=== PATIENT | male | born 1995 | race Caucasian/White ===

== ENCOUNTER 2019-05-19 10:15 | Outpatient (CLI) | payer BC, SELFPAY ==
--- NOTE | 2019-05-19 11:00 | NEURO_ITS ---
Patient Number: [id number] Impression: # Complains of numbness of hands. # No Carpal Tunnel Syndrome. # No ulnar neuropathy. # Normal needle/EMG exam. Nerve Conduction Studies Anti Sensory Summary Table Stim Site NR Peak (ms) P-T Amp (?V) Site1 Site2 Delta-P (ms) Dist (cm) [place] (m/s) Left Median Anti Sensory (2-3nd Digit) Wrist 2.6 89.7 Wrist 2-3nd Digit 2.6 14.0 54 Wrist 2.5 91.6 Wrist 2-3nd Digit 2.6 14.0 54 Right Median Anti Sensory (2-3nd Digit) Wrist 2.5 69.7 Wrist 2-3nd Digit 2.5 14.0 56 Wrist 2.7 60.1 Wrist 2-3nd Digit 2.5 14.0 56 Left Radial Anti Sensory (Base 1st Digit) Wrist 2.0 19.7 Wrist Base 1st Digit 2.0 0.0 Right Radial Anti Sensory (Base 1st Digit) Wrist 2.3 14.2 Wrist Base 1st Digit 2.3 0.0 Left Ulnar Anti Sensory (5th Digit) Wrist 2.4 63.4 Wrist 5th Digit 2.4 14.0 58 Right Ulnar Anti Sensory (5th Digit) Wrist 2.2 62.4 Wrist 5th Digit 2.2 14.0 64 Motor Summary Table Stim Site NR Onset (ms) O-P Amp (mV) Site1 Site2 Delta-0 (ms) Dist (cm) [place] (m/s) Left Median Motor (Abd Poll Brev) Wrist 2.7 6.9 Elbow Wrist 5.3 32.0 60 Elbow 8.0 3.8 Right Median Motor (Abd Poll Brev) Wrist 3.0 5.9 Elbow Wrist 4.6 30.0 65 Elbow 7.6 5.5 Left Ulnar Motor (Abd Dig Minimi) Wrist 2.4 5.4 A Elbow Wrist 5.2 31.0 60 A Elbow 7.6 4.3 Right Ulnar Motor (Abd Dig Minimi) Wrist 2.1 5.1 A Elbow Wrist 4.7 31.0 66 A Elbow 6.8 4.4 F Wave Studies NR F-Lat (ms) L-R F-Lat (ms) Left Median (Mrkrs) (Abd Poll Brev) 26.95 0.63 Right Median (Mrkrs) (Abd Poll Brev) 26.33 0.63 Left Ulnar (Mrkrs) (Abd Dig Min) 26.36 1.04 Right Ulnar (Mrkrs) (Abd Dig Min) 25.32 1.04 EMG Side Muscle Nerve Root Ins Act Fibs Amp Dur Recrt Comment Right 1stDorInt Ulnar C8-T1 Nml Nml Nml Nml Nml Right Ext Indicis Radial (Post Int) C7-8 Nml Nml Nml Nml Nml Right Ext Digitorum Radial (Post Int) C7-8 Nml Nml Nml Nml Nml Right BrachioRad Radial C5-6 Nml Nml Nml Nml Nml Right PronatorTeres Median C6-7 Nml Nml Nml Nml Nml Right Abd Poll Brev Median C8-T1 Nml Nml Nml Nml Nml Left 1stDorInt Ulnar C8-T1 Nml Nml Nml Nml Nml Left Ext Indicis Radial (Post Int) C7-8 Nml Nml Nml Nml Nml Left Ext Digitorum Radial (Post Int) C7-8 Nml Nml Nml Nml Nml Left BrachioRad Radial C5-6 Nml Nml Nml Nml Nml Left PronatorTeres Median C6-7 Nml Nml Nml Nml Nml Left Abd Poll Brev Median C8-T1 Nml Nml Nml Nml Nml MTDD
== END 2019-05-19 10:16 | disposition home or self-care (01) ==
LOC: ANHNEURO 10:19
PROVIDERS: Visit Provider Psychiatry & Neurology Neurology
DX: R20.2 Paresthesia of skin (principal)
CPT/HCPCS: 95886; 95911

== ENCOUNTER 2019-06-26 11:00 | Outpatient (CLI) | payer BC, SELFPAY ==
[2019-06-26 11:30] LABS: Basophils Percent Auto 0.3 % (0.2-1.2); Eosinophils Absolute Auto 0.1 K/mm3 (0-0.3); Eosinophils Percent Auto 0.9 % (0-4.4); Hematocrit 46.8 % (42.0-52.0); Hemoglobin 15.4 g/dL (14.0-18.0); Immature Granulocyte Absolute 0.03 K/mm3 (0.00-0.031); Immature Granulocyte Percent A 0.3 % (0-0.5); Lymphocytes Absolute Auto 2.88 K/mm3 (0.9-3.2); Lymphocytes Percent Auto 32.8 % (18.3-44.2); Mean Corpuscular HGB Conc 32.9 g/dl (32-36); Mean Corpuscular Hemoglobin 29.4 pg (26-34); Mean Corpuscular Volume 89.3 fl (80-100); Mean Platelet Volume 9.8 fl (7.4-10.4); Monocytes Absolute Auto 0.7 K/mm3 (0.1-0.6); Monocytes Percent Auto 7.5 % (2.6-8.5); Neutrophils Absolute Auto 5.1 K/mm3 (1.3-6.7); Neutrophils Percent Auto 58.2 % (45.5-73.1); Platelet Count Result 274 k/mm3 (150-375); Red Blood Count 5.24 M/mm3 (4.6-6.20); Red Cell Distribution Width 12.6 % (11.5-14.5); White Blood Count 8.8 K/mm3 (4.5-10.0)
[2019-06-26 11:40] LABS: Alanine Aminotransferase 22 U/L (4-50); Albumin Level 4.6 g/dL (3.5-5.1); Alkaline Phosphatase 95 U/L (38-126); Aspartate Amino Transferase 22 U/L (17-59); Bilirubin,Total 0.7 mg/dL (0.2-1.3); Blood Urea Nitrogen 13 mg/dL (9-20); Calcium 9.1 mg/dL (8.4-10.2); Carbon Dioxide 26 mmol/L (22-30); Chloride 103 mmol/L (98-107); Estimated Glomerular Filt Rate > 60; Glucose 89 mg/dL (75-110); Potassium 4.2 mmol/L (3.4-5.0); Sodium 139 mmol/L (137-145)
[2019-06-26 12:46] LABS: Folic Acid 11.7 ng/mL (2.76->20)
[2019-07-01 10:54] LABS: JC Polyoma Virus DNA, QL Plasma; JC Polyoma Virus Source Not Detected (Not Detected)
== END 2019-06-26 11:01 | disposition home or self-care (01) ==
PROVIDERS: PCP Family Medicine; Visit Provider Psychiatry & Neurology Neurology
DX: G35 Multiple sclerosis (principal)
CPT/HCPCS: 36415; 80053; 82607; 82746; 85025; 87798

== ENCOUNTER 2019-10-10 09:57 | Outpatient (CLI) | payer BC, SELFPAY ==
--- NOTE | ~2019-10-10 | MR_ITS ---
EXAMINATION: MR brain/brain stem wo/w con EXAM DATE: 10/10/2019 11:07 INDICATION: Multiple sclerosis. New symptoms of hand numbness and tingling, has moved to legs. TECHNIQUE: Magnetic resonance imaging (MRI) of the brain/brain stem obtained without contrast. Sagit anthony T1, axial diffusion, gradient echo (T2*), T1, T2, FLAIR sequences obtained. Demyelinating protoco l was utilized including sagittal FLAIR images. Patient was then injected with 18 cc intravenous M ultihance contrast. Axial and coronal postcontrast T1 weighted sequences obtained. There is no prior study for comparison. FINDINGS: There are several punctate foci of periventricular signal abnormalities, a non-specific fin ding with differential diagnosis including premature chronic small vessel ischemic disease (especiall y if the patient has cardiovascular risk factors), migraine headaches, demyelinating disease such as multiple sclerosis or acute disseminated encephalomyelitis (ADEM), vasculopathy, lyme's disease or re active astrocytosis (gliosis) secondary to nonspecific etiology. There are no areas of restricted diffusion to suggest acute infarction. There is no acute hemorrhage seen on the T2*, a hemosiderin sensitive sequence. No intraparenchymal brain mass. The ventricles a re normal in size. There are no extra-axial collections. Flow voids are seen in the cerebral arteri es on the T2-weighted sequences consistent with their expected patency. The orbits are unremarkable. Soft tissue is unremarkable. There are no areas of abnormal enhancement on the postcontrast image s. IMPRESSION: Several punctate nonspecific periventricular signal abnormalities. No enhancing, active d isease. Reviewed, dictated and finalized at location A. IMPRESSION: Several punctate nonspecific periventricular signal abnormalities. No enhancing, active disease.
[2019-10-10 10:30] LABS: Estimated Glomerular Filt Rate > 60
== END 2019-10-10 09:58 | disposition home or self-care (01) ==
PROVIDERS: PCP Family Medicine; Visit Provider Psychiatry & Neurology Neurology
DX: G35 Multiple sclerosis (principal)
CPT/HCPCS: 36415; 70553; A9577

== ENCOUNTER 2019-10-23 08:30 | Outpatient (RCR) | payer BC, SELFPAY ==
[2019-10-19 08:49] VITALS: BMI 27.6
[2019-10-19 09:03] VITALS: BP 124/68; PULSE 89; RESP 16; TEMP 36.3; O2SAT 98
[2019-10-19 10:25] VITALS: BP 127/65
[2019-10-20 11:04] VITALS: BP 141/78; PULSE 96; RESP 16; TEMP 36.3; O2SAT 98
[2019-10-20 12:22] VITALS: BP 120/72
[2019-10-21 09:03] VITALS: BP 123/61; PULSE 105; RESP 16; TEMP 36.6; O2SAT 97
[2019-10-21 10:22] VITALS: BP 128/57; PULSE 91; RESP 16; O2SAT 99
[2019-10-22 09:38] VITALS: BP 133/63; PULSE 95; RESP 16; O2SAT 97
[2019-10-22 10:53] VITALS: BP 125/63; PULSE 80; RESP 18; O2SAT 99
[2019-10-23 08:42] VITALS: BP 120/68; PULSE 885; RESP 16; O2SAT 98
[2019-10-23 10:00] VITALS: BP 132/69; PULSE 69; RESP 16; O2SAT 99
== END 2019-10-28 14:08 | disposition other institution (70) ==
LOC: AMCINF 08:30
PROVIDERS: PCP Family Medicine; Referring Provider Psychiatry & Neurology Neurology; Visit Provider Internal Medicine Hematology & Oncology
DX: G35 Multiple sclerosis (principal)
CPT/HCPCS: 96365; J2930

== ENCOUNTER 2020-12-28 15:35 | Outpatient (CLI) | payer OTHER, SELFPAY ==
--- NOTE | ~2020-12-28 | MR_ITS ---
EXAMINATION: MR thoracic spine wo/w con EXAM DATE: 12/28/2020 17:36 INDICATION: G35 - Multiple sclerosis . TECHNIQUE: Multi-sequential, multiplanar MR images of the thoracic spine were obtained without contra st. Sagittal T1, T2, T2 fat saturation, axial T2 weighted images reviewed. Axial T1 weighted sequenc e. Patient was then injected with 17 mL Multihance intravenous contrast and reimaged. Postcontrast axial and sagittal T1-weighted fat saturation sequences were obtained. Correlation was made with cerv ical spine MR same date. FINDINGS: There are scattered thoracic spinal cord signal abnormalities, T2 hyperintensities which ar e ill-defined and consistent with multiple sclerosis. One of these at T1-2 endplate level measuring 3 mm demonstrating enhancement, consistent with active multiple sclerosis plaque. No other areas of ab normal enhancement are demonstrated. There is mild mid and lower thoracic spondylosis. IMPRESSION: 1. Small enhancing upper thoracic spinal cord plaque, active lesion of multiple sclerosis. 2. Several other ill-defined thoracic cord signal abnormalities consistent with multiple sclerosis. 3. Mild thoracic spondylosis. Reviewed, dictated and finalized at location B. IMPRESSION: 1. Small enhancing upper thoracic spinal cord plaque, active lesion of multipl e sclerosis. 2. Several other ill-defined thoracic cord signal abnormalities consistent wit h multiple sclerosis. 3. Mild thoracic spondylosis.
--- NOTE | ~2020-12-28 | MR_ITS ---
EXAMINATION: MR cervical spine wo/w con EXAM DATE: 12/28/2020 17:36 INDICATION: G35 - Multiple sclerosis. TECHNIQUE: Multi-sequential, multiplanar MR images of the cervical spine were obtained without contra st. Axial T2, axial T2 MERGE sequence. Sagittal T1, T2, T2 fat saturation images also obtained. Axi al T1 weighted sequence. Patient was then injected with 17 mL Multihance intravenous contrast and re imaged. Postcontrast axial and sagittal T1-weighted fat saturation sequences were obtained. There i s no prior study for comparison. FINDINGS: Scattered cervical spinal cord signal abnormalities which are ill-defined and consistent w ith provided history of multiple sclerosis. There is 3 mm focus of enhancement within the cord at the T1-2 level, consistent with an active plaque. No other areas of abnormal enhancement. The vertebral bodies are aligned in the AP dimension. Vertebral body and disc heights are well-maintained. There ar e no suspicious marrow signal abnormalities. Paraspinal soft tissue is unremarkable. Mild cervical fa cet arthropathy. IMPRESSION: 1. Small enhancing upper thoracic spinal cord plaque, active lesion of multiple sclerosis 2. Scattered cervical cord signal abnormalities, sequela from multiple sclerosis. Reviewed, dictated and finalized at location B. IMPRESSION: 1. Small enhancing upper thoracic spinal cord plaque, active lesion of multipl e sclerosis 2. Scattered cervical cord signal abnormalities, sequela from multiple scleros is.
[2020-12-28 16:18] LABS: Estimated Glomerular Filt Rate > 60
== END 2020-12-28 15:36 | disposition home or self-care (01) ==
PROVIDERS: PCP Family Medicine; Visit Provider Psychiatry & Neurology Neurology
DX: G35 Multiple sclerosis (principal); M47.814 Spondylosis without myelopathy or radiculopathy, thoracic region
CPT/HCPCS: 72156; 72157; A9577

== ENCOUNTER 2021-01-05 10:53 | Inpatient (IN) | payer OTHER, SELFPAY ==
[2021-01-05 11:37] VITALS: BMI 27.4
[2021-01-05 11:48] VITALS: BP 129/95; PULSE 91; RESP 16; TEMP 36.7; O2SAT 96
--- NOTE | 2021-01-05 13:04 | PM.IMHP ---
H&P: HPI History of Present Illness Date/Time: 01/05/21 13:04 this is a 25-year-old male patient who has a history of multiple sclerosis. The patient was diagnosed in [address] Lorenzo. The patient stated that he started having symptoms of numbness and and weakness to his lower extremities approximately 3 weeks ago. The patient stated that he was able to get a hold of the neurologist and was prescribed a tapering dose of steroids for 1 week any also had an MRI. The patient stated that he did not get any better and had to wait for his insurance to approve IV steroids. The patient denies any double vision at this time or any chest or arm complaints. He stated that he just had numbness and tingling to his lower extremities. He was having difficulty feeling his lower extremities. He stated that he did not have any falls or gait instability at this time. He has not had any falls in the last 3 weeks. The patient stated that he has been taking his home medications routinely. The patient was seen by Dr. Tinajero today and was sent to the hospital for IV steroids. The patient is being admitted to inpatient services on the date of service of 01/05/2021. Chief Complaint: Numbness and tingling to lower extremities exacerbation of MS Review of Systems Review of Systems: All systems reviewed & are unremarkable except as noted in HPI and below Constitutional: Constitutional: Reports as per HPI and Reports no additional constitutional complaints Eyes: Eyes: Reports as per HPI and Reports no additional eye complaints ENT: Reports system reviewed and no additional complaints, except as documented and Reports Normal hearing present Cardiovascular: Cardiovascular: Reports no additional cardiovascular complaints Respiratory: Respiratory: Reports no additional respiratory complaints and Reports no additional respiratory complaints Gastrointestinal: Gastrointestinal: Reports as per HPI and Reports no additional gastrointestinal complaints Musculoskeletal: Musculoskeletal: Reports no additional musculoskeletal complaints Integumentary/Breasts: Skin/Breast: Reports system reviewed and no additional complaints, except as docu and Reports as per HPI Neurologic: Reports system reviewed and no additional complaints, except as documented, Reports as per HPI and Reports Normal hearing present Psychiatric: Psychiatric: Reports no additional psychiatric complaints and Reports as per HPI Endocrine: Endocrine: Reports no additional endocrine complaints Hematologic/Lymphatic: Hematologic/Lymphatic: Reports no additional hematologic/lymphatic complaints Allergic/Immunologic: Allergic/Immunologic: Reports no additional allergic/immunologic complaints [facility] Past Medical History Medical History Multiple sclerosis Surgical History Surgical History (Updated 01/05/21 @ 13:13 by Abena García NP) H/O wisdom tooth extraction History of tonsillectomy Family History Family History (Updated 01/05/21 @ 13:22 by Abena García NP) Grandparent Family history of Alzheimer's disease Mother Asthma Father Hypertension Sibling Fibromyalgia Social History Social History (Updated 01/05/21 @ 13:23 by Abena García NP) Social History: The patient is and lives with his . He is a full code and desires to have his is the durable power supervisor lamp shades for healthcare. He has no children. He does not use any tobacco alcohol or illicit drugs. 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 Smoking status: Never smoker Alcohol intake: never Substance use: never Gender identity (if verbalized by the patient): Male Spiritual care concerns: No Meds Home Medications and Allergies Home Medications Medication Instructions Recorded Confirmed Type dimethyl fumarate 240 mg 240 mg PO BID #60 cap 12/16/20 01/05/21 Rx capsule,delayed release Allergies Allergy/AdvReac Type Celia
[2021-01-05] MEDS: methylPREDNISolone SOD SUCC 1,000 MG in DEXTROSE 5% 100 ML 12.5 MG IVPB (13:13)
[2021-01-05 13:14] VITALS: BP 128/80; PULSE 90; RESP 18; TEMP 36.7; O2SAT 97
[2021-01-05 14:11] LABS: Estimated CRCL calculation 130 ml/min; Estimated Glomerular Filt Rate > 60
[2021-01-05 14:13] LABS: Lactic Acid Reflex 1.1 mmol/L (0.7-2.1)
--- NOTE | 2021-01-05 14:45 | PHAR ---
The patient's home med of Dimethyl Fumarate 240mg has been verified.
[2021-01-05 15:46] VITALS: BP 128/80; PULSE 84; RESP 18; TEMP 36.9; O2SAT 96
[2021-01-05 17:07] LABS: Add Urine Microscopic? YES; Appearance Urine Clear (Clear); Bacteria Urine Trace /hpf; Bilirubin Urine Negative (Negative); Blood Urine Negative (Negative); Color Urine Yellow (Yellow); Glucose Urine UA Negative (Negative); Ketones Urine Negative (Negative); Leukocyte Esterase Ur Negative LEU/UL (Negative); Mucus Urine Rare /lpf; Nitrate Urine Negative (Negative); Protein Urine Negative (Negative); RBC Urine 0-2 /hpf (0-2); Specific Grav Ur 1.021 (1.001-1.035); Squamous Epithelial Cell Urine Rare /hpf (Few); WBC Urine 0-3 /hpf
[2021-01-05 19:40] VITALS: PULSE 84; RESP 18; O2SAT 96
--- NOTE | 2021-01-05 22:03 | PC.NURSE ---
Patient report received from JULES Adrian. All questions answered and care of patient assumed.
--- NOTE | 2021-01-05 22:33 | PC.NURSE ---
Pt resting comfortably in bed. NAD noted. No complaints. Patient denies pain and states that the discomfort in his legs and feet is really just more of an annoyance and rates it a 1/10. Call light within reach. Will continue to monitor.
[2021-01-06] VITALS: BP 126/66; PULSE 91; RESP 14; TEMP 36.2; O2SAT 95
--- NOTE | 2021-01-06 03:29 | PC.NURSE ---
Patient resting quietly in bed with eyes closed. Appears to be asleep. Respirations regular and non-labored. Call-light within reach. Will continue to monitor.
[2021-01-06 05:40] LABS: Basophils Percent Auto 0.1 % (0.2-1.2); Hematocrit 44.5 % (42.0-52.0); Hemoglobin 15.1 g/dL (14.0-18.0); Immature Granulocyte Absolute 0.11 K/mm3 (0.00-0.031); Immature Granulocyte Percent A 0.9 % (0-0.5); Lymphocytes Absolute Auto 1.44 K/mm3 (0.9-3.2); Lymphocytes Percent Auto 11.2 % (18.3-44.2); Mean Corpuscular HGB Conc 33.9 g/dl (32-36); Mean Corpuscular Hemoglobin 30.6 pg (26-34); Mean Corpuscular Volume 90.1 fl (80-100); Mean Platelet Volume 9.9 fl (7.4-10.4); Monocytes Absolute Auto 0.1 K/mm3 (0.1-0.6); Monocytes Percent Auto 0.8 % (2.6-8.5); Neutrophils Absolute Auto 11.2 K/mm3 (1.3-6.7); Platelet Count Result 250 k/mm3 (150-375); Red Blood Count 4.94 M/mm3 (4.6-6.20); Red Cell Distribution Width 12.3 % (11.5-14.5); White Blood Count 12.8 K/mm3 (4.5-10.0)
[2021-01-06 05:50] LABS: Lactic Acid Reflex 1.8 mmol/L (0.7-2.1)
[2021-01-06 05:58] LABS: Alanine Aminotransferase 21 U/L (4-50); Albumin Level 4.5 g/dL (3.5-5.1); Alkaline Phosphatase 60 U/L (38-126); Anion Gap 12 mmol/L (8-16); Aspartate Amino Transferase 21 U/L (17-59); Bilirubin,Total 0.4 mg/dL (0.2-1.3); Blood Urea Nitrogen 13 mg/dL (9-20); CRP < 0.5 mg/dL (<1.0); Calcium 9.6 mg/dL (8.4-10.2); Carbon Dioxide 21 mmol/L (22-30); Chloride 106 mmol/L (98-107); Estimated CRCL calculation 147 ml/min; Estimated Glomerular Filt Rate > 60; Glucose 130 mg/dL (65-110); Lactate Dehydrogenase 352 U/L (313-618); Magnesium 1.9 mg/dL (1.6-2.3); Potassium 4.5 mmol/L (3.4-5.0); Sodium 139 mmol/L (137-145)
--- NOTE | 2021-01-06 07:01 | PC.NURSE ---
Pt continues to sleep comfortably without complaints. NAD noted. Respirations regular and non-labored. Call-light within reach.
--- NOTE | 2021-01-06 07:21 | PC.NURSE ---
Patient report given to JULES Collins. All questions answered and care of patient transferred.
[2021-01-06 07:55] VITALS: BP 125/70; PULSE 92; RESP 14; TEMP 36.5; O2SAT 98
--- NOTE | 2021-01-06 08:35 | PC.NURSE ---
DR. JUAREZ HERE TO SEE PT.
--- NOTE | 2021-01-06 09:25 | PC.NURSE ---
JOHNNY ALVES HERE TO SEE PT.
--- NOTE | 2021-01-06 09:40 | WPDNEURCNPN ---
Assessment and Plan Additional Plan confirmed case of relapsing and remitting demyelinating disease that is multiple sclerosis for which patient has been receiving the therapy as an outpatient on a regular basis has been admitted to the hospital for the recurrence of symptomatology in the lower extremities and Medrol intravenous has been started along with the continuation of Tecfidera 240 mg b.i.d.. This is a medication which was switched over from Gilenya Consult date: 01/06/21 Time Seen: 09:00 HPI: Lewis Patrick is a 25 year old male has been admitted to the [facility] for the complaints of increasing numbness of both lower extremities. Evaluation as an outpatient included MRI of the thoracic spine which documented 2 new lesions suggestive of demyelination. Patient has been getting anti MS treatment on a regular basis and has tried couple of times the oral steroids with suggested him to get the IV Medrol because of the spinal cord involvement otherwise his past history is consistent with documented diagnosis of multiple sclerosis . He has had complete evaluation including the complete MRI and spinal fluid studies which were consistent with the diagnosis of demyelinating disease initially he was taking Gilenya but because of insurance status the medication has been changed Review of Systems Review of Systems: All systems reviewed & are unremarkable except as noted in HPI and below PMFSH Past Medical History Medical History Multiple sclerosis Surgical History Surgical History H/O wisdom tooth extraction History of tonsillectomy Family History Family History Grandparent Family history of Alzheimer's disease Mother Asthma Father Hypertension Sibling Fibromyalgia Social History Social History Social History: The patient is and lives with his . He is a full code and desires to have his is the durable power managing attorney for healthcare. He has no children. He does not use any tobacco alcohol or illicit drugs. 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 Smoking status: Never smoker Alcohol intake: never Substance use: never Gender identity (if verbalized by the patient): Male Spiritual care concerns: No Meds Home Medications and Allergies Home Medications Medication Instructions Recorded Confirmed Type dimethyl fumarate 240 mg 240 mg PO BID #60 cap 12/16/20 01/05/21 Rx capsule,delayed release Allergies Allergy/AdvReac Type Severity Reaction Status Date / Time No Known Allergies Allergy Verified 01/05/21 11:33 Vital Signs Vital Signs - 24 hr 01/05/21 11:48 01/05/21 13:14 01/05/21 15:46 Temperature 36.7 C 36.7 C 36.9 C Pulse Rate 91 90 84 Respiratory Rate 16 18 18 Blood Pressure 129/95 H 128/80 128/80 Pulse Oximetry 96 97 96 01/05/21 19:40 01/06/21 00:00 01/06/21 07:55 Temperature 36.2 C L 36.5 C Pulse Rate 84 91 92 Respiratory Rate 18 14 14 Blood Pressure 126/66 125/70 Pulse Oximetry 96 95 98 Exam Narrative: examination is consistent with him being awake alert cooperative in no obvious acute distress. Head normocephalic with no cranial bruit. Ear nose throat examination normal neck is supple with no cervical bruit no thyromegaly no lymphadenopathy. Heart regular with no murmur. Lungs clear to auscultation without rhonchi or crepitations. Abdomen is soft with no organomegaly. Neurological is awake alert oriented x3. The cranial examination is normal. Motor examination is also normal sensory examination revealed no gross deficit flexes are symmetric and plantar responses are downgoing Results Labs CBC & Chem 7: 01/06/21 05:26 01/06/21 05:26 Labs: Short CBC 01/06/21 Range/Units 05:26 WBC 12.8 H (4.5-10.0) K/mm3
[2021-01-06] MEDS: methylPREDNISolone SOD SUCC 1,000 MG in DEXTROSE 5% 100 ML 12.5 MG IVPB (10:32)
[2021-01-06] MEDS: ENOXAPARIN 40 MG/0.4 ML SYRINGE SUB-Q (10:33)
[2021-01-06 12:30] LABS: Free T4 Free Thyroxine Reflex 0.92 ng/dL (0.78-2.19)
[2021-01-06 13:35] LABS: Total Triiodothyronine (T3) 1.75 NG/ML (0.97-1.69)
--- NOTE | 2021-01-06 13:40 | PM.IMPN ---
Progress Note: A&P Assessment and Plan (1) Multiple sclerosis: Code(s): G35 - Multiple sclerosis Status: Chronic Assessment and Plan: Per neurology-->MRI of the thoracic spine which documented 2 new lesions suggestive of demyelination Failed outpatient treatment of a tapering steroid Continue with home medication Tecfidera 240 mg bid Neurology consulted, recommendations appreciated Continue Solu-Medrol 1000 mg IV piggyback every a.m., day 2/3-5 PT/OT Subjective Date/time seen: 01/06/21 13:40 Interval history: Pt seen and evaluated; no acute events overnight; no new complaints; he states he feels about the same Review of Systems Review of Systems: All systems reviewed & are unremarkable except as noted in HPI and below Exam Const: General: no acute distress, alert and awake Orientation/consciousness: patient oriented x3 HENMT: Head: normocephalic and atraumatic Ears: hearing grossly normal bilaterally Face and sinus: face symmetric Mouth: Yes Normal oral and palatal mucosa present Eyes: EOM: EOMs intact bilaterally Neck: Neck: full ROM, trachea midline and no JVD Resp: Effort & Inspection: normal respiratory effort Auscultation: clear to auscultation bilaterally Cardio: Jugular venous distension: no JVD Rate: regular rate Rhythm: regular rhythm Heart sounds: S1 normal heart sound present and S2 normal heart sound present GI: Inspection: normal to inspection GI Palp: Yes Soft to palpation Percussion: Yes normal to percussion Auscultation: normal bowel sounds : General: Yes no CVA tenderness Back/Spine/Pelvis: Back: no CVA tenderness Skin: General skin exam: normal color Rashes: no rashes Neuro: General: patient oriented x3 and CN's II-XI intact bilaterally Speech: normal speech Extrem: General: full ROM Psych: Appearance: grossly normal Affect: normal affect Judgement: Good judgement present (Psych) Objective Data Vital Signs Vital Signs: Vital Signs - 24 hr 01/05/21 15:46 01/05/21 19:40 01/06/21 00:00 Temperature 36.9 C 36.2 C L Pulse Rate 84 84 91 Respiratory Rate 18 18 14 Blood Pressure 128/80 126/66 Pulse Oximetry 96 96 95 01/06/21 07:55 Temperature 36.5 C Pulse Rate 92 Respiratory Rate 14 Blood Pressure 125/70 Pulse Oximetry 98 Intake/Output Intake/Output: Intake & Output 01/03/21 01/04/21 01/05/21 01/06/21 23:59 23:59 23:59 23:59 Intake Total 650 666 Balance 650 666 Meds/Results Medications: Active Medications Generic Name Dose Route Start Last Admin Trade Name Freq PRN Reason Stop Dose Admin Enoxaparin Sodium 40 mg 01/06/21 09:00 01/06/21 10:33 Enoxaparin 40 Mg/0.4 Ml Syringe SUB-Q 40 mg DAILY JULIO Administration Methylprednisolone Sodium 100 mls @ 12.5 mls/hr 01/05/21 12:12 01/06/21 10:32 Succinate 1,000 mg/ Dextrose IVPB 12.5 mls/hr QAM JULIO Administration Ondansetron HCl 4 mg 01/05/21 13:16 Ondansetron Inj 4 Mg/2 Ml Vial IV PUSH Q6H PRN Nausea And Vomiting Labs Labs: Laboratory Results - last 24 hr 01/05/21 01/05/21 01/05/21 13:42 13:42 13:42 WBC RBC Hgb Hct MCV MCH MCHC RDW Plt Count MPV Immature Gran % (Auto) Neut % (Auto) Lymph % (Auto) [place] % (Auto) Eos % (Auto) Baso % (Auto) Lymph # (Auto) [place] # (Auto) Eos # (Auto) Baso # (Auto) Abs Immat Gran (auto) Absolute Neuts (auto) Absolute Nucleated RBC Nucleated RBC % Sodium Potassium Chloride Carbon Dioxide Anion Gap BUN Creatinine 0.80 Estim Creat Clear Calc 130 Estimated GFR > 60 Glucose Lactic Acid 1.1 Calcium Magnesium 2.0 Ferritin Total Bilirubin AST ALT Alkaline Phosphatase Lactate Dehydrogenase C-Reactive Protein Total Protein Albumin TSH (Reflex) Free T4 Total T3 Urine Color Urine Appearance Urine pH Ur Specific [place]
[2021-01-06 14:05] VITALS: BP 145/76; PULSE 106; RESP 18; TEMP 36.6; O2SAT 96
[2021-01-06 20:00] VITALS: BP 150/82; PULSE 101; RESP 14; O2SAT 93
[2021-01-07 08:00] VITALS: BP 139/76; PULSE 83; RESP 14; TEMP 36.4; O2SAT 97
[2021-01-07] MEDS: methylPREDNISolone SOD SUCC 1,000 MG in DEXTROSE 5% 100 ML 12.5 MG IVPB (08:41)
[2021-01-07] MEDS: ENOXAPARIN 40 MG/0.4 ML SYRINGE SUB-Q (08:41)
--- NOTE | 2021-01-07 12:58 | PM.IMPN ---
Progress Note: A&P Assessment and Plan (1) Multiple sclerosis: Code(s): G35 - Multiple sclerosis Status: Chronic Assessment and Plan: Per neurology-->MRI of the thoracic spine which documented 2 new lesions suggestive of demyelination Failed outpatient treatment of a tapering steroid Continue with home medication Tecfidera 240 mg bid Neurology consulted, recommendations appreciated Continue Solu-Medrol 1000 mg IV piggyback every a.m., day 2/3-5 PT/OT Accuchecks, SSI while on steroids Subjective Date/time seen: 01/07/21 12:58 Interval history: Pt seen and evaluated; no acute events overnight; no new complaints Review of Systems Review of Systems: All systems reviewed & are unremarkable except as noted in HPI and below Exam Const: General: no acute distress, alert and awake Orientation/consciousness: patient oriented x3 HENMT: Head: normocephalic and atraumatic Ears: hearing grossly normal bilaterally Face and sinus: face symmetric Mouth: Yes Normal oral and palatal mucosa present Eyes: EOM: EOMs intact bilaterally Neck: Neck: full ROM, trachea midline and no JVD Resp: Effort & Inspection: normal respiratory effort Auscultation: clear to auscultation bilaterally Cardio: Jugular venous distension: no JVD Rate: regular rate Rhythm: regular rhythm Heart sounds: S1 normal heart sound present and S2 normal heart sound present GI: Inspection: normal to inspection Auscultation: normal bowel sounds : General: Yes no CVA tenderness Back/Spine/Pelvis: Back: no CVA tenderness Skin: General skin exam: normal color Rashes: no rashes Neuro: General: patient oriented x3 and CN's II-XI intact bilaterally Speech: normal speech Extrem: General: full ROM Psych: Appearance: grossly normal Affect: normal affect Judgement: Good judgement present (Psych) Objective Data Vital Signs Vital Signs: Vital Signs - 24 hr 01/06/21 14:05 01/06/21 20:00 01/07/21 08:00 Temperature 36.6 C 36.4 C L Pulse Rate 106 H 101 H 83 Respiratory Rate 18 14 14 Blood Pressure 145/76 H 150/82 H 139/76 Pulse Oximetry 96 93 97 Intake/Output Intake/Output: Intake & Output 01/04/21 01/05/21 01/06/21 01/07/21 23:59 23:59 23:59 23:59 Intake Total 650 2206 120 Output Total 400 300 Balance 650 1806 -180 Meds/Results Medications: Active Medications Generic Name Dose Route Start Last Admin Trade Name Freq PRN Reason Stop Dose Admin Dextrose 12.5 gm 01/07/21 12:56 Dextrose 50% 25 Gm/50 Ml Syringe IV PUSH PRN PRN Hypoglycemia Protocol Enoxaparin Sodium 40 mg 01/06/21 09:00 01/07/21 08:41 Enoxaparin 40 Mg/0.4 Ml Syringe SUB-Q 40 mg DAILY JULIO Administration Glucagon 1 mg 01/07/21 12:56 Glucagon For Inj 1 Mg Vial IM PRN PRN Hypoglycemia Protocol Glucose 15 gm 01/07/21 12:56 Glucose Oral Gel 15 Gm Of Glucse In 37.5 Gm Tube PO PRN PRN Hypoglycemia Protocol Methylprednisolone Sodium 100 mls @ 12.5 mls/hr 01/05/21 12:12 01/07/21 08:41 Succinate 1,000 mg/ Dextrose IVPB 12.5 mls/hr QAM JULIO Administration Dextrose 1,000 mls @ 100 mls/hr 01/07/21 12:56 Dextrose 5% 1,000 Ml IVPB PRN PRN Hypoglycemia Protocol Insulin Aspart 2 - 5 units 01/07/21 17:00 Insulin Aspart (*Bkc) 100 Units/Ml SUB-Q TIDWM JULIO Protocol Ondansetron HCl 4 mg 01/05/21 13:16 Ondansetron Inj 4 Mg/2 Ml Vial IV PUSH Q6H PRN Nausea And Vomiting Labs Labs: Laboratory Results - last 24 hr 01/06/21 05:26 Total T3 1.75 H Quality VTE Prophylaxis VTE prophylaxis: pharmacologic ordered
[2021-01-07 16:00] VITALS: BP 139/75; PULSE 88; RESP 14; TEMP 36.1; O2SAT 96
[2021-01-07 17:21] LABS: Glucose Point of Care 105 mg/dl (65-105)
[2021-01-08 00:01] VITALS: BP 123/74; PULSE 72; RESP 20; O2SAT 97
[2021-01-08 06:08] LABS: Anion Gap 8 mmol/L (8-16); Blood Urea Nitrogen 20 mg/dL (9-20); Calcium 8.7 mg/dL (8.4-10.2); Carbon Dioxide 26 mmol/L (22-30); Chloride 107 mmol/L (98-107); Estimated CRCL calculation 147 ml/min; Estimated Glomerular Filt Rate > 60; Glucose 117 mg/dL (65-110); Potassium 4.3 mmol/L (3.4-5.0); Sodium 141 mmol/L (137-145)
[2021-01-08 07:47] LABS: Glucose Point of Care 97 mg/dl (65-105)
[2021-01-08 08:00] VITALS: BP 152/69; PULSE 88; RESP 18; TEMP 36; O2SAT 98
[2021-01-08] MEDS: methylPREDNISolone SOD SUCC 1,000 MG in DEXTROSE 5% 100 ML 12.5 MG IVPB (08:21)
[2021-01-08] MEDS: ENOXAPARIN 40 MG/0.4 ML SYRINGE SUB-Q (08:21)
--- NOTE | 2021-01-08 10:00 | PM.IMPN ---
Progress Note: A&P Assessment and Plan (1) Multiple sclerosis: Code(s): G35 - Multiple sclerosis Status: Chronic Assessment and Plan: Per neurology-->MRI of the thoracic spine which documented 2 new lesions suggestive of demyelination Failed outpatient treatment of a tapering steroid Continue with home medication Tecfidera 240 mg bid Neurology consulted, recommendations appreciated Continue Solu-Medrol 1000 mg IV piggyback every a.m., day 2/3-5 PT/OT Accuchecks, SSI while on steroids Subjective Date/time seen: 01/08/21 10:00 Interval history: Pt seen and evaluated; no acute events overnight; no new complaints; symptoms slightly improved Review of Systems Review of Systems: All systems reviewed & are unremarkable except as noted in HPI and below Exam Const: General: no acute distress, alert and awake Orientation/consciousness: patient oriented x3 HENMT: Head: normocephalic and atraumatic Ears: hearing grossly normal bilaterally Face and sinus: face symmetric Mouth: Yes Normal oral and palatal mucosa present Eyes: EOM: EOMs intact bilaterally Neck: Neck: full ROM, trachea midline and no JVD Resp: Effort & Inspection: normal respiratory effort Auscultation: clear to auscultation bilaterally Cardio: Jugular venous distension: no JVD Rate: regular rate Rhythm: regular rhythm Heart sounds: S1 normal heart sound present and S2 normal heart sound present GI: Inspection: normal to inspection Auscultation: normal bowel sounds : General: Yes no CVA tenderness Back/Spine/Pelvis: Back: no CVA tenderness Skin: General skin exam: normal color Rashes: no rashes Neuro: General: patient oriented x3 and CN's II-XI intact bilaterally Speech: normal speech Extrem: General: full ROM Psych: Appearance: grossly normal Affect: normal affect Judgement: Good judgement present (Psych) Objective Data Vital Signs Vital Signs: Vital Signs - 24 hr 01/07/21 16:00 01/08/21 00:01 01/08/21 08:00 Temperature 36.1 C L 36.0 C L Pulse Rate 88 72 88 Respiratory Rate 14 20 18 Blood Pressure 139/75 123/74 152/69 H Pulse Oximetry 96 97 98 Intake/Output Intake/Output: Intake & Output 01/05/21 01/06/21 01/07/21 01/08/21 23:59 23:59 23:59 23:59 Intake Total 650 2206 860 200 Output Total 400 801 400 Balance 650 1806 59 -200 Meds/Results Medications: Active Medications Generic Name Dose Route Start Last Admin Trade Name Freq PRN Reason Stop Dose Admin Dextrose 12.5 gm 01/07/21 12:56 Dextrose 50% 25 Gm/50 Ml Syringe IV PUSH PRN PRN Hypoglycemia Protocol Enoxaparin Sodium 40 mg 01/06/21 09:00 01/08/21 08:21 Enoxaparin 40 Mg/0.4 Ml Syringe SUB-Q 40 mg DAILY JULIO Administration Glucagon 1 mg 01/07/21 12:56 Glucagon For Inj 1 Mg Vial IM PRN PRN Hypoglycemia Protocol Glucose 15 gm 01/07/21 12:56 Glucose Oral Gel 15 Gm Of Glucse In 37.5 Gm Tube PO PRN PRN Hypoglycemia Protocol Methylprednisolone Sodium 100 mls @ 12.5 mls/hr 01/05/21 12:12 01/08/21 08:21 Succinate 1,000 mg/ Dextrose IVPB 12.5 mls/hr QAM JULIO Administration Dextrose 1,000 mls @ 100 mls/hr 01/07/21 12:56 Dextrose 5% 1,000 Ml IVPB PRN PRN Hypoglycemia Protocol Insulin Aspart 2 - 5 units 01/07/21 17:00 01/08/21 08:30 Insulin Aspart (*Bkc) 100 Units/Ml SUB-Q Not Given TIDWM [facility] Protocol Ondansetron HCl 4 mg 01/05/21 13:16 Ondansetron Inj 4 Mg/2 Ml Vial IV PUSH Q6H PRN Nausea And Vomiting Labs Labs: Laboratory Results - last 24 hr 01/07/21 01/08/21 01/08/21 16:33 05:34 07:44 Sodium 141 Potassium 4.3 Chloride 107 Carbon Dioxide 26 Anion Gap 8 BUN 20 Creatinine 0.70 Estim Creat Clear Calc 147 Estimated GFR > 60 Glucose 117 H POC Capillary Glucose 105 97 Calcium 8.7 Quality VTE Prophylaxis VTE prophylaxis: pharmacologic ordered
[2021-01-08 11:36] LABS: Glucose Point of Care 81 mg/dl (65-105)
[2021-01-08 16:00] VITALS: BP 142/83; PULSE 94; RESP 20; TEMP 36.2; O2SAT 97
[2021-01-08 16:35] LABS: Glucose Point of Care 99 mg/dl (65-105)
[2021-01-08 16:39] LABS: Hematocrit 44.2 % (42.0-52.0); Hemoglobin 14.9 g/dL (14.0-18.0); Mean Corpuscular HGB Conc 33.7 g/dl (32-36); Mean Corpuscular Hemoglobin 30.6 pg (26-34); Mean Corpuscular Volume 90.8 fl (80-100); Mean Platelet Volume 10.2 fl (7.4-10.4); Platelet Count Result 275 k/mm3 (150-375); Red Blood Count 4.87 M/mm3 (4.6-6.20); Red Cell Distribution Width 12.9 % (11.5-14.5); White Blood Count 17.4 K/mm3 (4.5-10.0)
[2021-01-08 23:08] VITALS: BP 127/71; PULSE 63; RESP 16; TEMP 36.8; O2SAT 97
[2021-01-09 07:15] LABS: Anion Gap 9 mmol/L (8-16); Blood Urea Nitrogen 22 mg/dL (9-20); Calcium 8.8 mg/dL (8.4-10.2); Carbon Dioxide 25 mmol/L (22-30); Chloride 106 mmol/L (98-107); Estimated CRCL calculation 130 ml/min; Estimated Glomerular Filt Rate > 60; Glucose 116 mg/dL (65-110); Sodium 140 mmol/L (137-145)
[2021-01-09 07:49] VITALS: BP 129/72; PULSE 63; RESP 18; TEMP 36.5; O2SAT 98
[2021-01-09 08:32] LABS: Hematocrit 41.4 % (42.0-52.0); Mean Corpuscular HGB Conc 33.8 g/dl (32-36); Mean Corpuscular Hemoglobin 30.7 pg (26-34); Mean Corpuscular Volume 90.8 fl (80-100); Mean Platelet Volume 10.5 fl (7.4-10.4); Platelet Count Result 276 k/mm3 (150-375); Red Blood Count 4.56 M/mm3 (4.6-6.20); Red Cell Distribution Width 12.8 % (11.5-14.5); White Blood Count 16.3 K/mm3 (4.5-10.0)
[2021-01-09] MEDS: ENOXAPARIN 40 MG/0.4 ML SYRINGE SUB-Q (08:45)
[2021-01-09] MEDS: methylPREDNISolone SOD SUCC 1,000 MG in DEXTROSE 5% 100 ML 12.5 MG IVPB (08:45)
--- NOTE | 2021-01-09 11:01 | WPDNEUROPN ---
Progress Note: A&P Additional Plan Patient at present will be continued on Tecfidera 240 mg b.i.d., he will finish the course of intravenous Medrol tonight and tomorrow he will be discharged on Medrol Dosepak. He is extremely concerned about the pros and cons of his diagnosis and long-term treatment. Time being will be continued on Tecfidera I have offered the choice case if he has more relapsing attacks then we can switch him over intravenous treatment on 6 months basis which is available now but was not available several years ago but for the time being he can continue Tecfidera as such Subjective Date/time seen: 01/09/21 11:01 25 years old right-handed male has been admitted for the Solu-Medrol treatment for 5 days the ongoing diagnosis of relapsing or remitting demyelinating disease, considering the age of the patient he is extremely concerned about the ongoing treatment and long-term affect of his diagnosis he has received Solu-Medrol intravenously and today's for 5th day he will be discharged tomorrow Review of Systems Review of Systems: All systems reviewed & are unremarkable except as noted in HPI and below Exam Narrative: awake alert cooperative in no obvious acute distress. His speech nor dysphasic no dysarthric not dysphonic. Pupils round regular reacting to light equally. Extraocular movements are full with no nystagmus. Facial sensation intact. Face symmetrical. Tongue midline. Uvula in midline. Motor examination revealed him to have no drift of one-sided other side. Deep tendon reflexes symmetrical and plantar responses were downgoing. Sensory examination revealed him to have patchy numbness of the lower extremities particularly on the left lower extremity. Objective Data Vital Signs Vital Signs: Vital Signs - 24 hr 01/08/21 16:00 01/08/21 23:08 01/09/21 07:49 Temperature 36.2 C L 36.8 C 36.5 C Pulse Rate 94 63 63 Respiratory Rate 20 16 18 Blood Pressure 142/83 H 127/71 129/72 Pulse Oximetry 97 97 98 Intake/Output Intake/Output: Intake & Output 01/06/21 01/07/21 01/08/21 01/09/21 23:59 23:59 23:59 23:59 Intake Total 2206 860 740 840 Output Total 400 801 400 350 Balance 1806 59 340 490 Meds/Results Medications: Active Medications Generic Name Dose Route Start Last Admin Trade Name Freq PRN Reason Stop Dose Admin Dextrose 12.5 gm 01/07/21 12:56 Dextrose 50% 25 Gm/50 Ml Syringe IV PUSH PRN PRN Hypoglycemia Protocol Enoxaparin Sodium 40 mg 01/06/21 09:00 01/09/21 08:45 Enoxaparin 40 Mg/0.4 Ml Syringe SUB-Q 40 mg DAILY JULIO Administration Glucagon 1 mg 01/07/21 12:56 Glucagon For Inj 1 Mg Vial IM PRN PRN Hypoglycemia Protocol Glucose 15 gm 01/07/21 12:56 Glucose Oral Gel 15 Gm Of Glucse In 37.5 Gm Tube PO PRN PRN Hypoglycemia Protocol Methylprednisolone Sodium 100 mls @ 12.5 mls/hr 01/05/21 12:12 01/09/21 08:45 Succinate 1,000 mg/ Dextrose IVPB 12.5 mls/hr QAM JULIO Administration Dextrose 1,000 mls @ 100 mls/hr 01/07/21 12:56 Dextrose 5% 1,000 Ml IVPB PRN PRN Hypoglycemia Protocol Insulin Aspart 2 - 5 units 01/07/21 17:00 01/09/21 07:51 Insulin Aspart (*Bkc) 100 Units/Ml SUB-Q Not Given TIDWM [facility] Protocol Methylprednisolone 8 mg 01/10/21 06:30 Methylprednisolone (Medrol) Dosepack 4 Mg Tablets PO 01/15/21 07:29 0630 JULIO Taper Ondansetron HCl 4 mg 01/05/21 13:16 Ondansetron Inj 4 Mg/2 Ml Vial IV PUSH Q6H PRN Nausea And Vomiting Labs Labs: Laboratory Results - last 24 hr 01/08/21 01/08/21 01/08/21 11:33 16:11 16:28 WBC 17.4 H RBC 4.87 Hgb 14.9 Hct 44.2 MCV 90.8 MCH 30.6 MCHC 33.7 RDW 12.9 Plt Count 275 MPV 10.2 Sodium Potassium Chloride Carbon Dioxide Anion Gap BUN Creatinine Estim Creat Clear Calc Estimated GFR Glucose POC Capillary Glucose 81 9
[2021-01-09 11:34] LABS: Glucose Point of Care 90 mg/dl (65-105)
--- NOTE | 2021-01-09 13:37 | PM.IMPN ---
Progress Note: A&P Assessment and Plan (1) Multiple sclerosis: Code(s): G35 - Multiple sclerosis Status: Chronic Assessment and Plan: Per neurology-->MRI of the thoracic spine which documented 2 new lesions suggestive of demyelination Failed outpatient treatment of a tapering steroid Continue with home medication Tecfidera 240 mg bid Neurology consulted, recommendations appreciated Continue Solu-Medrol 1000 mg IV piggyback every a.m., day 5/ PT/OT Accuchecks, SSI while on steroids Home on Medrol Dosepak tomorrow Subjective Date/time seen: 01/09/21 13:37 Interval history: Pt seen and evaluated; no acute events overnight; no new complaints; overall, symptoms slightly improved Review of Systems Review of Systems: All systems reviewed & are unremarkable except as noted in HPI and below Exam Const: General: no acute distress, alert and awake Orientation/consciousness: patient oriented x3 HENMT: Head: normocephalic and atraumatic Ears: hearing grossly normal bilaterally Face and sinus: face symmetric Mouth: Yes Normal oral and palatal mucosa present Eyes: EOM: EOMs intact bilaterally Neck: Neck: full ROM, trachea midline and no JVD Resp: Effort & Inspection: normal respiratory effort Auscultation: clear to auscultation bilaterally Cardio: Jugular venous distension: no JVD Rate: regular rate Rhythm: regular rhythm Heart sounds: S1 normal heart sound present and S2 normal heart sound present GI: Inspection: normal to inspection Auscultation: normal bowel sounds : General: Yes no CVA tenderness Back/Spine/Pelvis: Back: no CVA tenderness Skin: General skin exam: normal color Rashes: no rashes Neuro: General: patient oriented x3 and CN's II-XI intact bilaterally Speech: normal speech Extrem: General: full ROM Psych: Appearance: grossly normal Affect: normal affect Judgement: Good judgement present (Psych) Objective Data Vital Signs Vital Signs: Vital Signs - 24 hr 01/08/21 16:00 01/08/21 23:08 01/09/21 07:49 Temperature 36.2 C L 36.8 C 36.5 C Pulse Rate 94 63 63 Respiratory Rate 20 16 18 Blood Pressure 142/83 H 127/71 129/72 Pulse Oximetry 97 97 98 Intake/Output Intake/Output: Intake & Output 01/06/21 01/07/21 01/08/21 01/09/21 23:59 23:59 23:59 23:59 Intake Total 2206 476 949 7560 Output Total 400 801 400 350 Balance 1806 59 340 970 Meds/Results Medications: Active Medications Generic Name Dose Route Start Last Admin Trade Name Freq PRN Reason Stop Dose Admin Dextrose 12.5 gm 01/07/21 12:56 Dextrose 50% 25 Gm/50 Ml Syringe IV PUSH PRN PRN Hypoglycemia Protocol Enoxaparin Sodium 40 mg 01/06/21 09:00 01/09/21 08:45 Enoxaparin 40 Mg/0.4 Ml Syringe SUB-Q 40 mg DAILY JULIO Administration Glucagon 1 mg 01/07/21 12:56 Glucagon For Inj 1 Mg Vial IM PRN PRN Hypoglycemia Protocol Glucose 15 gm 01/07/21 12:56 Glucose Oral Gel 15 Gm Of Glucse In 37.5 Gm Tube PO PRN PRN Hypoglycemia Protocol Methylprednisolone Sodium 100 mls @ 12.5 mls/hr 01/05/21 12:12 01/09/21 08:45 Succinate 1,000 mg/ Dextrose IVPB 12.5 mls/hr QAM JULIO Administration Dextrose 1,000 mls @ 100 mls/hr 01/07/21 12:56 Dextrose 5% 1,000 Ml IVPB PRN PRN Hypoglycemia Protocol Insulin Aspart 2 - 5 units 01/07/21 17:00 01/09/21 13:04 Insulin Aspart (*Bkc) 100 Units/Ml SUB-Q Not Given TIDWM JULIO Protocol Methylprednisolone 8 mg 01/10/21 06:30 Methylprednisolone (Medrol) Dosepack 4 Mg Tablets PO 01/15/21 07:29 0630 JULIO Taper Ondansetron HCl 4 mg 01/05/21 13:16 Ondansetron Inj 4 Mg/2 Ml Vial IV PUSH Q6H PRN Nausea And Vomiting Labs Labs: Laboratory Results - last 24 hr 01/08/21 01/08/21 01/09/21 16:11 16:28 05:25 WBC 17.4 H RBC 4.87 Hgb 14.9 Hct 44.2 MCV 90.8 MCH 30.6 MCHC 33.7 RDW 12.9 Plt Count 275 MPV
[2021-01-09 16:00] VITALS: BP 146/82; PULSE 78; RESP 16; TEMP 36.8; O2SAT 96
[2021-01-09 16:38] LABS: Glucose Point of Care 117 mg/dl (65-105)
[2021-01-10] VITALS: BP 130/62; PULSE 57; RESP 14; TEMP 36.6; O2SAT 96
[2021-01-10] MEDS: methylPREDNISolone (MEDROL) DOSEPACK 4 MG TABLETS PO ×2 (06:12→11:40)
[2021-01-10 06:24] LABS: Anion Gap 7 mmol/L (8-16); Blood Urea Nitrogen 21 mg/dL (9-20); Calcium 8.5 mg/dL (8.4-10.2); Carbon Dioxide 27 mmol/L (22-30); Chloride 106 mmol/L (98-107); Estimated CRCL calculation 130 ml/min; Estimated Glomerular Filt Rate > 60; Glucose 113 mg/dL (65-110); Potassium 4.2 mmol/L (3.4-5.0); Sodium 140 mmol/L (137-145)
[2021-01-10 07:51] VITALS: BP 125/83; PULSE 62; RESP 14; TEMP 36.1; O2SAT 96
--- NOTE | 2021-01-10 10:33 | WPDNEUROPN ---
Progress Note: A&P Additional Plan patient was advised to return the office for the follow-up in 4 weeks at that time would like to repeat the MRI of cervical and thoracic spine to document with lesions a completely resolved or not in the meantime he will take the oral Medrol for the next 5 days and continue his treatment with Tecfidera as such Subjective Date/time seen: 01/10/21 10:33 25 years old right-handed male who was admitted to the [facility] for the treatment for spinal cord new lesion from the demyelinating disease he had the MRI done as an outpatient subsequently had a course of oral Medrol as well but his symptomatology was progressing when he was admitted for the intravenous Medrol therapy received a treatment for 5 days now at this stage is being discharged with instruction to return to the office for the follow-up in 4 weeks at that time will repeat the MRI to evaluate with lesions have completely resolved or not Review of Systems Review of Systems: All systems reviewed & are unremarkable except as noted in HPI and below Exam Narrative: on exam today he is awake alert cooperative in no obvious acute distress speech is not dysphasic no dysarthric not dysphonic is able to follow the verbal commands appropriately pupils round regular feels the vision full extraocular movements full face symmetrical tongue midline and motor examination revealed him to have no drift of 1 side or other side tone is normal in both upper and lower extremities reflexes symmetrical plantars are downgoing except that he has subjective symptoms of numbness in his lower extremities particularly the left lower extremity he is extremely anxious with her it will get better or not Objective Data Vital Signs Vital Signs: Vital Signs - 24 hr 01/09/21 16:00 01/10/21 00:00 01/10/21 07:51 Temperature 36.8 C 36.6 C 36.1 C L Pulse Rate 78 57 L 62 Respiratory Rate 16 14 14 Blood Pressure 146/82 H 130/62 125/83 Pulse Oximetry 96 96 96 Intake/Output Intake/Output: Intake & Output 01/07/21 01/08/21 01/09/21 01/10/21 23:59 23:59 23:59 23:59 Intake Total 191 526 0520 440 Output Total 801 400 875 Balance 59 340 1285 440 Meds/Results Medications: Active Medications Generic Name Dose Route Start Last Admin Trade Name Freq PRN Reason Stop Dose Admin Dextrose 12.5 gm 01/07/21 12:56 Dextrose 50% 25 Gm/50 Ml Syringe IV PUSH PRN PRN Hypoglycemia Protocol Enoxaparin Sodium 40 mg 01/06/21 09:00 01/10/21 08:47 Enoxaparin 40 Mg/0.4 Ml Syringe SUB-Q Not Given DAILY JULIO Glucagon 1 mg 01/07/21 12:56 Glucagon For Inj 1 Mg Vial IM PRN PRN Hypoglycemia Protocol Glucose 15 gm 01/07/21 12:56 Glucose Oral Gel 15 Gm Of Glucse In 37.5 Gm Tube PO PRN PRN Hypoglycemia Protocol Dextrose 1,000 mls @ 100 mls/hr 01/07/21 12:56 Dextrose 5% 1,000 Ml IVPB PRN PRN Hypoglycemia Protocol Insulin Aspart 2 - 5 units 01/07/21 17:00 01/10/21 08:41 Insulin Aspart (*Bkc) 100 Units/Ml SUB-Q Not Given TIDWM JULIO Protocol Methylprednisolone 8 mg 01/10/21 06:30 01/10/21 06:12 Methylprednisolone (Medrol) Dosepack 4 Mg Tablets PO 01/15/21 07:29 8 mg 0630 JULIO Administration Taper Ondansetron HCl 4 mg 01/05/21 13:16 Ondansetron Inj 4 Mg/2 Ml Vial IV PUSH Q6H PRN Nausea And Vomiting Labs Labs: Laboratory Results - last 24 hr 01/09/21 01/09/21 01/10/21 11:32 16:35 05:48 Sodium 140 Potassium 4.2 Chloride 106 Carbon Dioxide 27 Anion Gap 7 L BUN 21 H Creatinine 0.80 Estim Creat Clear Calc 130 Estimated GFR > 60 Glucose 113 H POC Capillary Glucose 90 117 H Calcium 8.5 Quality VTE Prophylaxis VTE prophylaxis: pharmacologic ordered Amg Follow-up Billing Inpatient Follow-up [id number] [facility]
--- NOTE | 2021-01-10 13:35 | PM.DS ---
DS: Admitting Diagnosis Discharge Date 01-10-21 Admitting Diagnosis MS flare DS: Discharge Diagnosis Discharge Diagnosis (1) Multiple sclerosis: Code(s): G35 - Multiple sclerosis Status: Chronic (2) Leukocytosis: Code(s): D72.829 - Elevated white blood cell count, unspecified Status: Acute DS: Summary Hospital Course Hospital Course: Date of service 01/10/2021 Patient is a 25-year-old male with a history of MS who was admitted for an MS flare. Patient was started on IV methylprednisolone and continued that throughout his stay. He had an MRI of his cervical and thoracic spine which did show evidence of MS flare. Neurology was consulted and recommended IV steroids and then transition to a Medrol dose pack and continuing his home and this medication Tecfidera. The patient did well and did improve throughout his stay although his symptoms did not resolve but was getting better. He had no concerns for weakness. Day of discharge he had no sign of infection on exam or through history. Leukocytosis likely due to steroids. Patient appears to be in stable condition and ready for discharge. He was educated about the worrisome signs and symptoms come back to emergency room for and was discharged in stable condition. He plans to follow up with Neurology outpatient Time Spent with Patient Time attestation: Total time spent providing and/or coordinating discharge services: 38 minutes Time spent: Greater than 30 minutes Exam Narrative: General: Well developed well nourished patient in NAD HEENT: normocephalic Neck: supple Neuro: Alert and oriented x4. Very mild hyper spastic the lower extremities. Sensation intact although patient does have subjective numbness. CV:RRR Resp:CTA Abd: Soft, non distended. No pain to palpation. Positive bowel sounds Extremities: No swelling, erythema, or pain to palpation. DS: Data Data Completed and Pending Labs on day of discharge: Labs from last 24 hours 01/10/21 01/09/21 05:48 16:35 Sodium 140 Potassium 4.2 Chloride 106 Carbon Dioxide 27 Anion Gap 7 L BUN 21 H Creatinine 0.80 Estim Creat Clear Calc 130 Estimated GFR > 60 Glucose 113 H POC Capillary Glucose 117 H Calcium 8.5 Discharge Plan Discharge Attending physician on discharge: Marco Antonio Puckett Consulting providers: Dennis Tinajero Discharging Clinician: Ute Cuellar Patient Disposition: Home, Self-Care Activity: as tolerated Diet: regular Discharge Instructions: -please take your medications as prescribed -as discussed, it is important to follow-up with an MS clinic. A phone number to [facility] is [phone] -follow-up with your primary care physician in 1-2 weeks about this stay -worrisome signs and symptoms come back to emergency room for: Chest pain, shortness of breath, fevers 101 4 greater, worsening weakness, worsening tingling, or any other worrisome symptom Patient Instructions: Antibiotic Form, Methylprednisolone (By mouth), Dimethyl Fumarate (By mouth), Multiple Sclerosis (DC) Stand Alone Forms: General Discharge Information Follow-up/Referrals: Laura Real MD [Primary Care Provider] - 1 Week Discharge Medications: New methylprednisolone [Medrol (Jerry)] 4 mg tablets,dose pack See Rx Instructions .ROUTE .COMPLEX Qty: 21 RF: 0 Continued dimethyl fumarate [Tecfidera] 240 mg capsule,delayed release(DR/EC) 240 mg PO BID Qty: 60 RF: 3 Date of admission: 01/05/21 10:53 Primary Care Provider: Laura Real Admitting Provider: Moises Salgado Attending physician on admission: Ute Cuellar Condition: Stable Quality VTE Prophylaxis VTE prophylaxis: pharmacologic ordered
== END 2021-01-10 14:04 | disposition home or self-care (01) | DRG 60 ==
PROVIDERS: Nurse Practitioner; Nurse Practitioner Adult Health; Admitting Provider Internal Medicine; PCP Family Medicine; Visit Provider Physician Assistant
DX: G35 Multiple sclerosis (principal); D72.829 Elevated white blood cell count, unspecified; T38.0X5A Adverse effect of glucocorticoids and synthetic analogues, initial encounter; Z79.899 Other long term (current) drug therapy
CPT/HCPCS: 36415; 80048; 80053; 81001; 82565; 82728; 82948; 83605; 83615; 83735; 84439; 84443; 84480; 85025; 85027; 86140; 97161; 97165; A9270; J1650; J2930

== ENCOUNTER 2023-11-02 12:44 | Emergency (ER) | payer SELFPAY ==
--- NOTE | ~2023-11-02 | CT_ITS ---
EXAMINATION: CT cervical spine wo con DATE: 11/02/2023 14:30 INDICATION: Paresthesias in the left arm TECHNIQUE: Computed tomography (CT) of the cervical spine was performed without intravenous contrast. Automated exposure control and iterative reconstruction technique were employed. The dose-length pro duct was 466.16 mGy-cm. COMPARISON: None FINDINGS: Likely positional mild reversal of normal cervical lordosis. No spondylolisthesis or facet subluxatio n. Vertebral body and disc heights are normal. No central canal stenosis. Mild uncovertebral osteoart hritis on the left at C2-C3 which results in only minimal neural foraminal stenosis. Otherwise minima l scattered cervical facet and uncovertebral osteoarthritis without additional neural foraminal steno sis. Cervical soft tissues are unremarkable. Visualized portion of the upper lungs are clear. IMPRESSION: 1. Minimal cervical spondylosis. No acute osseous abnormality. Reviewed, dictated and finalized at location A.
--- NOTE | ~2023-11-02 | CT_ITS ---
EXAMINATION: CT brain wo con DATE: 11/02/2023 14:30 INDICATION: Paresthesias in the left arm and face TECHNIQUE: Computed tomography (CT) of the head was performed without intravenous contrast. Sagittal and coronal reconstructions were performed. The mA was adjusted according to patient size. Iterative reconstruction technique was employed. The dose-length product was 605.33 mGy-cm. COMPARISON: Brain MR dated 10/10/2019 FINDINGS: There is a chronic arachnoid cyst at the left middle cranial fossa which exerts mass effect on the an teromedial aspect of the left temporal lobe. No other abnormal extra-axial fluid collections. There i s decreased attenuation with loss of kaplan-white matter differentiation without evident volume loss al hany the anteromedial right temporal lobe suspicious for acute infarct. Additional focal region of dec reased density suspicious for age-indeterminate potentially acute infarct in the right cerebral hemis phere. No acute intracranial hemorrhage. Ventricles are normal and symmetric with normal variant cavu m septum pellucidum. No mass/mass effect. The orbits, paranasal sinuses and mastoid air cells are nor mal. IMPRESSION: 1. Suggestion of cytotoxic edema at the anteromedial right temporal lobe suspicious for acute infarct although this could potentially represent streak artifact. 2. Focal small region of decreased attenuation in the right cerebral hemisphere also suspicious for i nfarct, potentially acute. This in the region of the right temporal lobe could both be more definitiv laureano assessed with MRI if clinically indicated. Reviewed, dictated and finalized at location A. IMPRESSION: 1. Suggestion of cytotoxic edema at the anteromedial right temporal lobe suspic ious for acute infarct although this could potentially represent streak artifac t. 2. Focal small region of decreased attenuation in the right cerebral hemisphere also suspicious for infarct, potentially acute. This in the region of the righ t temporal lobe could both be more definitively assessed with MRI if clinically indicated.
[2023-11-02 12:45] VITALS: BP 165/103; PULSE 105; RESP 18; TEMP 36.3; O2SAT 100
[2023-11-02 13:56] VITALS: BP 149/92; PULSE 93; RESP 16; TEMP 37.2; O2SAT 98
[2023-11-02 15:00] LABS: Basophils Percent Auto 0.5 % (0.2-1.2); Eosinophils Absolute Auto 0.1 K/mm3 (0-0.3); Hematocrit 46.3 % (42.0-52.0); Hemoglobin 15.6 g/dL (14.0-18.0); Immature Granulocyte Absolute 0.03 K/mm3 (0.00-0.031); Immature Granulocyte Percent A 0.4 % (0-0.5); Lymphocytes Absolute Auto 2.01 K/mm3 (0.9-3.2); Lymphocytes Percent Auto 24.3 % (18.3-44.2); Mean Corpuscular HGB Conc 33.7 g/dl (32-36); Mean Corpuscular Hemoglobin 30.2 pg (26-34); Mean Corpuscular Volume 89.7 fl (80-100); Mean Platelet Volume 10.3 fl (7.4-10.4); Monocytes Absolute Auto 0.7 K/mm3 (0.1-0.6); Monocytes Percent Auto 8.5 % (2.6-8.5); Neutrophils Absolute Auto 5.4 K/mm3 (1.3-6.7); Neutrophils Percent Auto 65.3 % (45.5-73.1); Platelet Count Result 250 k/mm3 (150-375); Red Blood Count 5.16 M/mm3 (4.6-6.20); Red Cell Distribution Width 12.5 % (11.5-14.5); White Blood Count 8.3 K/mm3 (4.5-10.0)
[2023-11-02 15:14] LABS: Alanine Aminotransferase 15 U/L (6-50); Albumin Level 4.6 g/dL (3.5-5.1); Alkaline Phosphatase 64 U/L (38-126); Anion Gap 11 mmol/L (4-12); Aspartate Amino Transferase 20 U/L (17-59); Bilirubin,Total 0.5 mg/dL (0.2-1.3); Blood Urea Nitrogen 12 mg/dL (9-20); Calcium 9.1 mg/dL (8.4-10.2); Carbon Dioxide 27 mmol/L (22-30); Chloride 101 mmol/L (98-107); Estimated CRCL calculation 94 ml/min; Estimated Glomerular Filt Rate > 60; Glucose 83 mg/dL (65-110); Potassium 4.3 mmol/L (3.4-5.0); Sodium 139 mmol/L (137-145)
--- NOTE | 2023-11-02 15:53 | ED.GENADULT ---
HPI - General Adult General Chief complaint: Unspecified Stated complaint: MS flare up Time Seen by Provider: 11/02/23 14:12 Source: patient Mode of arrival: ambulatory Limitations: no limitations History of Present Illness HPI narrative: This is a 28-year-old male that presents to the emergency department for left arm paresthesias. Ongoing over the last week. Also reporting paresthesias in the left side of his face and neck. Reporting some mild generalized weakness as well as mild issues. Reports he has been off of his Dimethyl fumarate for several months. He does see our Neurologists here at [place]. Although he is moving in 2 days. Denies fevers or focal weakness. Related Data Allergies Allergy/AdvReac Type Severity Reaction Status Date / Time No Known Allergies Allergy Verified 11/02/23 13:59 Review of Systems Review of Systems: CONSTITUTIONAL: Denies fever NEUROLOGIC: Reports numbness, and weakness. All systems reviewed & are unremarkable except as noted in HPI and below PMFSH Past Medical History Medical History Multiple sclerosis Surgical History Surgical History H/O wisdom tooth extraction History of tonsillectomy Family History Family History Grandparent Family history of Alzheimer's disease Mother Asthma Father Hypertension Sibling Fibromyalgia Social History Social History Social History: The patient is and lives with his . He is a full code and desires to have his is the durable power corporate associate attorney for healthcare. He has no children. He does not use any tobacco alcohol or illicit drugs. 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 Smoking status: Never smoker Alcohol intake: never Substance use: never Substance use type: does not use Lack of Transportation: No Lack of Food: Never True Current Housing: I Have Housing Concerned About Future Housing: No Difficulty Paying Gas/Electric Bills: No Difficulty Paying for Meds: No Currently Unemployed: No Education: Bachelor's Degree Difficulty w/ Childcare or Family Care: No Living arrangements: with family Gender identity (if verbalized by the patient): Male Spiritual care concerns: No Exam Narrative: GENERAL: Well-appearing, well-nourished, and in no acute distress. HEAD: Normocephalic, atraumatic. EYES: PERRLA and EOMI. ENT: Nares clear, no rhinorrhea or epistaxis. Mucous membranes moist. Oropharynx without tonsillar hypertrophy exudate or other lesions. Bilateral TMs pearly kaplan non-bulging NECK: Supple. No adenopathy or masses. CHEST: Clear to auscultation. No respiratory distress. No wheezes rales or rhonchi HEART: Regular rate and rhythm. No murmur heard. Normal peripheral pulses. EXTREMITIES: Normal range of motion. No edema. Strength equal in bilateral upper and lower extremities (5/5) SKIN: Warm, dry, no rash. NEURO: No focal deficits. Alert and oriented x3. CN II-XII grossly intact. Normal [id number] PSYCH: Normal mood and affect Course Course Emergency Course: Patient updated on his workup. Agrees with plan of care Consultations Consultation #1: Spoke with Dr. Lobato about patient and workup who recommends if patient does not wish to stay in the hospital he may be given initial infusion of methylprednisolone and then discharged with oral Prednisone taper. Encourage close follow up with Neurology where he is moving to Date: 11/02/23 Vital Signs Vital signs: Vital Signs Temperature 97.4 F L 11/02/23 12:45 Pulse Rate 105 H 11/02/23 12:45 Respiratory Rate 18 11/02/23 12:45 Blood Pressure 165/103 H 11/02/23 12:45 Pulse Oximetry 100 11/02/23 12:45 Oxygen Delivery Room Air 11/02/23 12:45 Temperature 99.0 F 11/02/23 13:56 Pulse Rate 94
[2023-11-02 16:19] LABS: Folic Acid 6.8 ng/mL (2.76->20)
[2023-11-02] MEDS: methylPREDNISolone SOD SUCC 500 MG in DEXTROSE 5% 100 ML 200 MG IVPB (16:39)
[2023-11-02 16:47] VITALS: BP 133/87; PULSE 81; RESP 20; O2SAT 99
[2023-11-02 17:51] VITALS: BP 132/96; PULSE 94; RESP 20; O2SAT 99
[2023-11-02 18:27] VITALS: BP 133/99; PULSE 107; RESP 14; O2SAT 99
== END 2023-11-02 18:31 | disposition home or self-care (01) ==
PROVIDERS: Emergency Provider Physician Assistant; PCP Family Medicine
DX: G35 Multiple sclerosis (principal)
CPT/HCPCS: 36415; 70450; 72125; 80053; 82607; 82746; 83735; 85025; 96365; 99284; J2919